=== PATIENT | female | born 1945 | race Caucasian/White ===

== ENCOUNTER 2024-08-03 00:47 | Day surgery (SDC) | payer MEDICARE, SELFPAY ==
[2024-07-24 13:06] VITALS: BMI 34.0
[2024-08-03 07:52] VITALS: BP 145/75; PULSE 75; RESP 18; TEMP 36.3; O2SAT 97; BMI 33.6
[2024-08-03] MEDS: LACTATED RINGERS 1,000 ML 150 ML IV CONT (08:20)
--- NOTE | 2024-08-03 08:20 | SUR.PREOP ---
Patient reports small stool balls still occurring this morning. Dr. Cortes notified and aware. Okay to proceed with procedure.
[2024-08-03 08:25] LABS: Glucose Point of Care 131 mg/dl (65-105)
--- NOTE | 2024-08-03 09:13 | P.PNAN_ITS ---
Anes - Initial Pre Proc Eval Procedure: Operation Date: 08/03/24 09:00 Proposed Procedures p Screening Colonoscopy - Dominick Cortes MD Date/Time: 08/03/24 09:13 Surgeon: Dominick Cortes MD Pre Op Diagnosis: Neoplasm Screening Patient Data Age: 79 Gender: F Height: 1.47 m Weight: 73 kg Last Vital Signs Temp 97.4 F L 08/03/24 07:52 Pulse 75 08/03/24 07:52 Resp 18 08/03/24 07:52 BP 145/75 H 08/03/24 07:52 Pulse Ox 97 08/03/24 07:52 O2 Del Method Room Air 08/03/24 07:52 Allergies Allergy/AdvReac Type Severity Reaction Status Date / Time No Known Drug Allergies Allergy Mild unknown Verified 08/03/24 07:51 Home Medications Medication Instructions Recorded Confirmed Type atorvastatin 80 mg tablet 80 mg PO DAILY 06/22/21 08/03/24 History cetirizine 10 mg tablet 10 mg PO DAILY 06/22/21 08/03/24 History ezetimibe 10 mg-atorvastatin 10 mg 1 tablet PO DAILY 06/22/21 08/03/24 History tablet furosemide 40 mg tablet 40 mg PO QAM 06/22/21 08/03/24 History krill 350 mg-omega-3 90 mg-dha 24 1 cap PO DAILY 06/22/21 08/03/24 History mg-epa 50 sz-hofopuf-ofsur capsule (MegaRed [place]-3 Krill Oil) mecobalamin (vitamin B12) 1,000 1,000 mcg PO DAILY 06/22/21 08/03/24 History mcg chewable tablet (B12 Active) magnesium 200 mg tablet 200 mg PO DAILY 04/29/22 08/03/24 History cholecalciferol (vitamin D3) 25 25 mcg PO DAILY 07/24/24 08/03/24 History mcg (1,000 unit) chewable tablet (Vitamin D3) metformin 500 mg tablet 500 mg PO DAILY 07/24/24 08/03/24 History sertraline 50 mg tablet 50 mg PO DAILY 07/24/24 08/03/24 History Laboratory Tests 08/03/24 08:13 POC Capillary Glucose 131 H mg/dl (65-105) Patient hx anesthesia problems: none Family hx anesthesia problems: none Results Review: All pre-operative results and documents have been reviewed as part of the pre- operative evaluation. [facility] Past Medical History Medical History Allergies Arthritis Bilateral knee pain Surgical History Surgical History History of cholecystectomy Family History Family History Mother Diabetes mellitus Other Family history of arthritis Social History Social History Smoking status: Never smoker Alcohol intake: never Substance use: current Other substance usage details: CBD Gummy for sleep Lack of Transportation: No Lack of Food: Never True Current Housing: I Have Housing Concerned About Future Housing: No Difficulty Paying Gas/Electric Bills: No Difficulty Paying for Meds: No Currently Unemployed: No Education: High School Diploma/GED Difficulty w/ Childcare or Family Care: No Living arrangements: with family Occupation/Education: retired Gender identity (if verbalized by the patient): Female Spiritual care concerns: No Anes - Eval Final PreProcedure Day of Procedure 08/03/24 09:13 Patient weight: obese Heart: regular rate and rhythm Lungs: clear to auscultation Airway: Mallampati scale class II Neurological: alert and oriented Last oral intake: >/= 8 hours ASA classification: III Emergent: no Anesthetic plan: proceed Anesthesia type and monitoring: general GIVS and standard monitoring Results Review: All pre-operative results and documents have been reviewed as part of the pre- operative evaluation. Hyperlipidmia, DM fsbs 131, SHANKAR but noncompliant w CPAP. Informed Consent: The patient's anesthetic plan and its attendant risks and benefits were discussed with the patient/family/POA. Questions were solicited and answers provided to the satisfaction of the patient/family/POA.
--- NOTE | 2024-08-03 09:29 | PM.IMHP ---
H&P: HPI History of Present Illness Date/Time: 08/03/24 09:29 Chief Complaint: Screening colonoscopy Narrative: This is the patient's second colonoscopy after more than 20 years. There are no GI symptoms and there is no family history of colorectal cancer. Review of Systems Review of Systems: All systems reviewed & are unremarkable except as noted in HPI and below PMFSH Past Medical History Medical History Allergies Arthritis Bilateral knee pain Surgical History Surgical History History of cholecystectomy Family History Family History Mother Diabetes mellitus Other Family history of arthritis Social History Social History Smoking status: Never smoker Alcohol intake: never Substance use: current Other substance usage details: CBD Gummy for sleep Lack of Transportation: No Lack of Food: Never True Current Housing: I Have Housing Concerned About Future Housing: No Difficulty Paying Gas/Electric Bills: No Difficulty Paying for Meds: No Currently Unemployed: No Education: High School Diploma/GED Difficulty w/ Childcare or Family Care: No Living arrangements: with family Occupation/Education: retired Gender identity (if verbalized by the patient): Female Spiritual care concerns: No Meds Home Medications and Allergies Home Medications Medication Instructions Recorded Confirmed Type atorvastatin 80 mg tablet 80 mg PO DAILY 06/22/21 08/03/24 History cetirizine 10 mg tablet 10 mg PO DAILY 06/22/21 08/03/24 History ezetimibe 10 mg-atorvastatin 10 mg 1 tablet PO DAILY 06/22/21 08/03/24 History tablet furosemide 40 mg tablet 40 mg PO QAM 06/22/21 08/03/24 History krill 350 mg-omega-3 90 mg-dha 24 1 cap PO DAILY 06/22/21 08/03/24 History mg-epa 50 ph-mqyzqua-kcsii capsule (MegaRed [place]-3 Krill Oil) mecobalamin (vitamin B12) 1,000 1,000 mcg PO DAILY 06/22/21 08/03/24 History mcg chewable tablet (B12 Active) magnesium 200 mg tablet 200 mg PO DAILY 04/29/22 08/03/24 History cholecalciferol (vitamin D3) 25 25 mcg PO DAILY 07/24/24 08/03/24 History mcg (1,000 unit) chewable tablet (Vitamin D3) metformin 500 mg tablet 500 mg PO DAILY 07/24/24 08/03/24 History sertraline 50 mg tablet 50 mg PO DAILY 07/24/24 08/03/24 History Allergies Allergy/AdvReac Type Severity Reaction Status Date / Time No Known Drug Allergies Allergy Mild unknown Verified 08/03/24 07:51 Vital Signs Vital Signs - 24 hr 08/03/24 07:52 Temperature 97.4 F L Pulse Rate 75 Respiratory Rate 18 Blood Pressure 145/75 H Pulse Oximetry 97 Oxygen Delivery Room Air Assessment and Plan Assessment and plan (1) Screening for malignant neoplasm of colon: Code(s): Z12.11 - Encounter for screening for malignant neoplasm of colon Status: Acute Assessment and Plan: The patient is deemed a good candidate for the procedure. Consent signed. Will proceed.
[2024-08-03 09:59] VITALS: BP 111/58; PULSE 58; RESP 20; O2SAT 98
[2024-08-03 10:09] VITALS: BP 118/66; PULSE 56; RESP 16; O2SAT 98
[2024-08-03 10:19] VITALS: BP 118/66; PULSE 57; RESP 22; O2SAT 98
== END 2024-08-03 10:39 | disposition home or self-care (01) ==
PROVIDERS: PCP Internal Medicine; Referring Provider Internal Medicine; Visit Provider Internal Medicine Gastroenterology
PROC: 0DJD8ZZ Inspection of Lower Intestinal Tract, Via Natural or Artificial Opening Endoscopic (ICD-10-PCS; CPT 45378; principal; 2024-08-03 09:00)
DX: Z12.11 Encounter for screening for malignant neoplasm of colon (principal); K57.30 Diverticulosis of large intestine without perforation or abscess without bleeding; F12.90 Cannabis use, unspecified, uncomplicated; E66.9 Obesity, unspecified; Z68.33 Body mass index [BMI] 33.0-33.9, adult; Z79.84 Long term (current) use of oral hypoglycemic drugs; Z98.890 Other specified postprocedural states; Z90.49 Acquired absence of other specified parts of digestive tract
CPT/HCPCS: G0121; 82948; J2003; J2704; J7120

== ENCOUNTER 2025-04-02 09:30 | Outpatient (CLI) | payer MEDICARE, SELFPAY ==
--- NOTE | ~2025-04-02 | MR_ITS ---
MRI of the cervical spine Clinical History: Myelopathy Technique: Axial T2-weighted and gradient images, and sagittal T1-weighted, T2-weighted, and STIR leda ges were acquired. Findings: There is no fracture or subluxation of the cervical spine. Vertebral bodies maintain normal height and alignment. No suspicious bone marrow signal abnormality seen. At C2-C3, there is no disc bulge or herniation. No spinal canal stenosis, cord compression, or neural foraminal narrowing. At C3-C4, there is no significant disc bulge or herniation. There is mild bilateral facet arthropathy , left worse than right. Possible minimal right neural foraminal narrowing. Left neural foramen proba lazaro preserved. No canal stenosis or cord compression. At C4-C5, there is advanced degenerative distended. There is disc and osteophyte complex with mild ca nal stenosis but no ra cord compression. There is bilateral neural foraminal narrowing. At C5-C6, there is advanced degenerative disc narrowing. There is disc osteophyte complex with modera te canal stenosis and minimal flattening the ventral cord. There is advanced bilateral neural foramin al narrowing, left worse than right. At C6-C7, there is advanced degenerative disc narrowing. There is minimal disc osteophyte complex. Th ere is mild canal stenosis without ra cord compression. There is left neural foraminal narrowing. Right neural foramen probably preserved. There is extensive mild amorphous hyperintense signal in the spinal cord on STIR images from the C4-C 6 levels, somewhat nonspecific. Paravertebral soft tissues are unremarkable. Impression: Moderate to advanced degenerative spondylosis throughout the cervical spine, as above. Mild amorphous STIR hyperintense signal in the spinal cord from C4 through C6, which could reflect no nspecific myelopathy or transverse myelitis. Reviewed, dictated and finalized at [facility]. Impression: Moderate to advanced degenerative spondylosis throughout the cervical spine, as above. Mild amorphous STIR hyperintense signal in the spinal cord from C4 through C6, which could reflect nonspecific myelopathy or transverse myelitis.
== END 2025-04-02 09:31 | disposition home or self-care (01) ==
LOC: GOSHIMG 09:31
PROVIDERS: PCP Internal Medicine; Visit Provider Internal Medicine
DX: G95.9 Disease of spinal cord, unspecified (principal); M47.892 Other spondylosis, cervical region
CPT/HCPCS: 72141

== ENCOUNTER 2025-04-25 11:04 | Outpatient (CLI) | payer MEDICARE, SELFPAY ==
--- NOTE | ~2025-04-25 | XR_ITS ---
Lumbosacral Spine: AP and lateral views Clinical History: Pain Findings: The normal lordotic curve is maintained. No fracture seen. 4-5 mm anterolisthesis of L4 ove r L5 present. There is advanced facet arthropathy at L4-L5 and L5-S1. The sacroiliac joints are pradip lly outlined. Impression: Advanced spondylosis of the lower lumbar spine with 4-5 mm anterolisthesis of L4 over L5. Reviewed, dictated and finalized at location . Impression: Advanced spondylosis of the lower lumbar spine with 4-5 mm anterolisthesis of L 4 over L5.
--- NOTE | ~2025-04-25 | XR_ITS ---
Thoracic spine: Clinical Indication: Back pain AP and lateral views were performed. No fracture is seen. There is normal alignment of the vertebrae. There is mild degenerative changes of the thoracic spine. There is mild DISH. Paravertebral soft tissues appear normal. Impression: Mild degenerative changes, as above. Reviewed, dictated and finalized at location . Impression: Mild degenerative changes, as above.
== END 2025-04-25 11:05 | disposition home or self-care (01) ==
LOC: GOSHIMG 11:05
PROVIDERS: PCP Internal Medicine; Visit Provider Internal Medicine
DX: M47.814 Spondylosis without myelopathy or radiculopathy, thoracic region (principal); M47.816 Spondylosis without myelopathy or radiculopathy, lumbar region; M43.16 Spondylolisthesis, lumbar region
CPT/HCPCS: 72070; 72100

== ENCOUNTER 2025-05-14 09:19 | Outpatient (CLI) | payer MEDICARE, SELFPAY ==
--- NOTE | ~2025-05-14 | MR_ITS ---
MRI of the lumbar spine Clinical History: Spondylolisthesis Technique: Axial T2-weighted images, and sagittal T1-weighted, T2-weighted, and and T2 fat-sat images were acquired. Findings: There is no fracture in the lumbar spine. There is minimal grade 1 anterolisthesis of L4 ov er L5. No bone marrow signal abnormality seen. At L1-L2, there is no disc bulge or herniation. No spinal canal stenosis or neural foraminal narrowin g. At L2-L3, there is no disc bulge or herniation. No spinal canal stenosis or neural foraminal narrowin g. At L3-L4, there is minimal disc bulge and mild facet arthropathy. No central canal stenosis. Probable minimal left neural foraminal narrowing. Right neural foramen preserved. At L4-L5, there is diffuse disc bulge with severe facet arthropathy. There is moderate to severe spin al canal stenosis/thecal sac compression. There is moderate left neural foraminal narrowing and minim al right neural foraminal narrowing. At L5-S1, there is disc bulge and severe facet arthropathy. No central canal stenosis. There is mild to moderate right neural foraminal narrowing. Paravertebral soft tissues are unremarkable. Impression: Moderate degenerative spondylosis, especially the lower lumbar spine, as detailed above. Reviewed, dictated and finalized at location . Impression: Moderate degenerative spondylosis, especially the lower lumbar spine, as detail ed above.
== END 2025-05-14 09:20 | disposition home or self-care (01) ==
LOC: GOSHIMG 09:20
PROVIDERS: PCP Internal Medicine; Visit Provider Internal Medicine
DX: M43.16 Spondylolisthesis, lumbar region (principal)
CPT/HCPCS: 72148

== ENCOUNTER 2025-06-03 10:58 | Outpatient (CLI) | payer MEDICARE, SELFPAY ==
--- NOTE | ~2025-06-03 | MR_ITS ---
EXAMINATION: MR thoracic spine wo con DATE: 06/03/2025 11:41 INDICATION: Intervertebral disc disorder TECHNIQUE: Magnetic resonance imaging (MRI) of the thoracic spine was performed without intravenous contrast. Sagittal localizer T1-weighted FSE of the cervicothoracic spine was obtained. Thoracic spine sequences included sagittal T2-weighted FSE, sagittal T1-weighted SE, Sagittal T2-weighted FS FSE, and axial T2-weighted FSE. COMPARISON: None FINDINGS: 12 degrees thoracic dextrocurvature. Sagittal alignment is normal. Vertebral body heights are normal. Normal marrow signal throughout.There is moderate disc height loss with degenerative endplate changes and disc bulges resulting in mild central canal stenosis at C5-C6 and C6-C7. Thoracic disc heights are relatively preserved. Small left paracentral disc protrusion with negligible central canal stenosis at T11-T12.. Disc bulges contributing to mild central canal stenosis at T12-L1 and L1-L2. The remaining thoracic discs do not extend beyond the endplate margins. There is multilevel mild to moderate thoracic facet osteoarthritis which contributes to mild neural foraminal stenosis on the right at T3-T4, T4-T5 and T9-T10 and on the left at T2-T3, T8-T9 and T9-T10. There is normal spinal cord signal with normal short central ventricular terminalis at the conus measuring 2 mm in maximal diameter. The conus terminates at L2. IMPRESSION: 1. 12 degrees thoracic dextroscoliosis with minimal to mild thoracic spondylosis. 2. Incompletely visualized moderate lower cervical and mild upper lumbar spondylosis. Reviewed, dictated and finalized at location A. IMPRESSION: 1. 12 degrees thoracic dextroscoliosis with minimal to mild thoracic spondylosi s. 2. Incompletely visualized moderate lower cervical and mild upper lumbar spondy losis.
== END 2025-06-03 10:59 | disposition home or self-care (01) ==
LOC: GOSHIMG 10:59
DX: M51.04 Intervertebral disc disorders with myelopathy, thoracic region (principal); M47.894 Other spondylosis, thoracic region; M47.892 Other spondylosis, cervical region; M47.896 Other spondylosis, lumbar region
CPT/HCPCS: 72146

== ENCOUNTER 2025-08-27 15:43 | Outpatient (CLI) | payer MEDICARE, SELFPAY ==
--- NOTE | ~2025-08-27 | MM_ITS ---
EXAMINATION: MM screening cinthya BI w brenda HISTORY: Screening TECHNIQUE: Craniocaudal and mediolateral oblique 3-D tomosynthesis images were obtained and synthetic 2-D images were generated. CAD analysis was submitted and interpreted. COMPARISON: No prior mammogram is available for comparison at this institution. BREAST PARENCHYMAL COMPOSITION: Not dense: There are scattered areas of fibroglandular density. FINDINGS: There are no suspicious masses, calcifications or architectural distortion in the right breast to suggest malignancy. There is a mass in the upper outer quadrant of the left breast, posterior third with slightly irregular margins. There are benign bilateral breast calcifications. IMPRESSION: 1. Left breast mass upper outer quadrant, posterior third. 2. Recommend comparison to previous outside mammograms. BI-RADS Category 0: Incomplete: Needs additional imaging evaluation. Reviewed, dictated and finalized at location O. 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
--- OUTSIDE RECORDS SUMMARY | 2025-08-28 03:11 | XMS_ITS | Clinical Summary ---
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 Role Phone Estevan Mccann MD Primary Care Provider Allergies Active Allergy Reactions Criticality Noted Date Comments Cefdinir Hives Medium 05/30/2025 Grape Other (See comments) 05/30/2025 Morphine Unknown 02/15/2017 Rosuvastatin Other (See comments) High 09/13/2017 Sulfa (Sulfonamide Antibiotics) Itching Medium 05/11 Medications atorvastatin (LIPITOR) 80 mg tablet atorvastatin 80 mg tablet 3 Active ezetimibe (ZETIA) 10 mg tablet Take 1 tablet (10 mg total) by mouth daily 2 Active furosemide (LASIX) 40 mg tablet 3 Active yrvgj-fp7-mvv-e bb-ea4-xte-astx (Krill Oil, [place] 3 and 6,) 1000-130(40-80) mg capsule Krill Oil ([place] 3 and 6) 1000-130(40-80) mg capsule 0 Active sertraline (ZOLOFT) 50 mg tablet 3 Active aspirin 81 mg enteric coated tablet Take 1 tablet (81 mg total) by mouth daily Active cetirizine (ZyrTEC) 10 mg tablet Take 1 tablet (10 mg total) by mouth daily Active albuterol HFA (PROVENTIL HFA,VENTOLIN HFA,PROAIR HFA) 90 mcg/actuation inhaler Inhale 2 puffs every 4 hours by inhalation route. Active OneTouch Verio test strips strip daily 5 Active cholecalciferol (VITAMIN D-3) 5,000 unit tablet Take 1 tablet every day by oral route. Active magnesium oxide (MAG-OX) 250 mg (150.8 mg elemental) tablet Take 1 tablet every day by oral route. 9 Active meclizine (ANTIVERT) 12.5 mg tablet Take by mouth Active metFORMIN (GLUCOPHAGE) 500 mg tablet Take 1 tablet (500 mg total) by mouth 2 (two) times a day 5 Active Active Problems Problem Noted Date Diagnosed Date Sensorineural hearing loss ( SNHL) of right ear with restricted hearing of left ear 01/10/2023 Sensorineural hearing loss (SNHL) of both ears 0 12/17/2022 Tinnitus of both ears 12/17/2022 Encounters Date Type Department Care Team Description 06/20/2025 11:24 AM CDT - 06/20/2025 11:59 PM CDT Hospital Encounter [facility] [address] [place] [address] [id number] Discharge Disposition: Discharge to home or self care 06/20/2025 10:15 AM CDT Office Visit [facility] [id number] [place] [address] [address] [place] [address] Juan Carlos Gant MD Cervical spondylosis with myelopathy [M47.12] (Primary Dx) 06/17/2025 Results [facility] [address] [facility] 4th [address] [place] [address] Geoff Pacheco MD Vitamin B12, Vitamin B1, Vitamin B6, Additional followed-up results: 3 05/30/2025 4:20 PM CDT Lab [facility] [address] [place] [address] Myelopathy; Memory loss 05/30/2025 2:15 PM CDT Office Visit [facility] [address] [place] [address] [address] [place] [address] Geoff Pacheco MD Myelopathy (Primary Dx); Memory loss from Last 3 Months Surgical History Surgery Date Site/Laterality Comments CHOLECYSTECTOMY Medical History Medical History Date Comments Allergic rhinitis Hyperlipidemia HL (hearing loss) Family History Medical History Relation Name Comments No Known Problems Father No Known Problems Mother Relation Name Status Comments Father Mother Social History Tobacco Use Types Packs/Day Years Used Date Smoking Tobacco: Never Smokeless Tobacco: Never Tobacco Cessation:Counseling Given: Not Answered Personal Safety Answer Date Recorded Have you ever been in or are you currently in a harmful physical or emotional relationship or is someone making you feel afraid or unsafe? 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 Gender Identity Not on file Sexual Orientation Not on file Last Filed Vital Signs Vital Sign Reading Time Taken Comments Blood Pressure 127/86 06/20/2025 10:14 AM CDT Pulse 74 06/20/2025 10:14 AM CDT Temperature 36.3 C (97.4 F) 06/20/2025 10:14 AM CDT Respiratory Rate 16 06/20/2025 10:14 AM CDT Oxygen Saturation 99% 06/20/2025 10:14 AM CDT Inhaled Oxygen Concentration - - Weight 72.2 kg (159 lb 1.6 oz) 06/20/2025 10:14 AM CDT Height 149.9 cm (4' 11) 01/10/2023 2:57 PM CDT Body Mass Index 32.13 01/10/2023 2:57 PM CDT Plan of Treatment Health Maintenance Due Date Last Done Comments Depression Screening 1945 Hepatitis C Screening 1945 DTaP/Tdap/Td Vaccine (1 - Tdap) 1958 Hepatitis B Screening 1965 Well Visit 65+ 2012 Zoster Vaccine (2 of 3) 09/13/2013 07/19/2013 Pneumococcal vaccine 65+ (2 of 2 - PPSV23, PCV20, or PCV21) 01/14/2015 11/19/2014 Covid-19 Vaccine (4 - 2024-2 6 season) 2025 09/05/2021, 12/30/2020, 11/19/2020 Influenza Vaccine (#1) 2025 , 08/03/2022, 08/15/2021, Additional history exists Osteoporosis Screening-Bone Density Scan 10/20/2025 10/20/2023 Fall Risk Assessment 05/30/2026 05/30/2025 Procedures Procedure Name Priority Date/Time Associated Diagnosis Comments NEURO MR OUTSIDE REFERENCE Routine 06/20/2025 11:24 AM CDT TSH Routine 05/30/2025 5:23 PM CDT Myelopathy Memory loss VITAMIN B12 Routine 05/30/2025 5:23 PM CDT Myelopathy Memory loss HIV 1/2 ANTIBODY PLUS P24 ANTIGEN Routine 05/30/2025 5:22 PM CDT Myelopathy Memory loss VITAMIN B6 Routine 05/30/2025 4:58 PM CDT Myelopathy Memory loss VITAMIN B1 Routine 05/30/2025 4:58 PM CDT Myelopathy Memory loss RPR Routine 05/30/2025 4:56 PM CDT Myelopathy Memory loss from Last 3 Months Results * Neuro MR Outside Reference (06/20/2025 11:24 AM CDT) Impressions [facility] - 06/20/2025 11:24 AM CDT These images are for Reference purposes only and have not been reviewed by [facility]. There will be no report generated by a [facility]ologist. Narrative [facility] - 06/20/2025 11:24 AM CDT EXAMINATION: Images For Reference Purposes Only us Juan Carlos Gant MD IMG MRI PROCEDURES Final Resu lt [facility] * TSH (05/30/2025 5:23 PM CDT) Thyroid Stimulating Hormone 2.96 0.30 - 4.20 mcIUnit/mL Blood 05/30/2025 5:23 PM CDT 05/30/2025 5:23 PM CDT Geoff Pacheco MD LAB BLOOD ORDERABLES F inal Result Performing Organization Address [facility] Co de Phone Number ÁNGELA JENSEN [address] [address] [facility] [place] [address] * Vitamin B12 (05/30/2025 5:23 PM CDT) [facility] Vitamin B12 381 230 - 1,250 pg/mL Blood 05/30/2025 5:23 PM CDT 05/30/2025 5:23 PM CDT Geoff Pacheco MD LAB BLOOD ORDERABLES F inal Result Performing Organization Address [facility] de Phone Number ÁNGELA JENSEN [phone] [address] Department [place] [address] * HIV 1/2 Antibody plus p24 Antigen Blood (05/30/2025 5:22 PM CDT) [facility] HIV 1/2 ab + p24 ag Nonreactive Nonreactive Comment: Nonreactive for HIV-1 antigen and HIV-1/HIV-2 antibodies. No laboratory evidence of HIV infection. If acute HIV infection is suspected, consider testing for HIV-1 RNA. Blood 05/30/2025 5:22 PM CDT 05/30/2025 5:22 PM CDT Geoff Pacheco MD LAB MICROBIOLOGY - GEN ERAL ORDERABLES Final Result Performing Organization Address [facility] Co de Phone Number ÁNGELA [phone] [address] [place] [address] * Vitamin B1 (05/30/2025 4:58 PM CDT) [facility] Thiamine (Vit B1) 143 70 - 180 nmol/L [facility] Lab Comment: ADDITIONAL INFORMATION This test was developed and its performance characteristics determined by [facility] in a manner consistent with CLIA requirements. This test has not been cleared or approved by the U.S. Food and Drug Administration. Test Performed by: [facility] [place] [address] Rap Artist: Rome Perry Ph.D.; CLIA# [id number] Blood 05/30/2025 4:58 PM CDT 05/30/2025 5:20 PM CDT Geoff Pacheco MD LAB BLOOD ORDERABLES F inal Result Performing Organization Address [facility] Co de Phone Number ÁNGELA CAMILA [phone] [address] [place] [address] [facility] * Vitamin B6 (05/30/2025 4:58 PM CDT) [facility] Pyridoxal phosphate (Vit B6) 7 5 - 50 mcg/L [facility] Comment: ADDITIONAL INFORMATION This test was developed and its performance characteristics determined by [facility] in a manner consistent with CLIA requirements. This test has not been cleared or approved by the U.S. Food and Drug Administration. Test Performed by: [facility] [address] Rap Artist: Rome Perry Ph.D.; CLIA# [id number] Blood 05/30/2025 4:58 PM CDT 05/30/2025 5:20 PM CDT Geoff Pacheco MD LAB BLOOD ORDERABLES F inal Result Performing Organization Address [facility]/ZIP Co de Phone Number ÁNGELA [phone] [address] [place] [address] [facility] * RPR Blood (05/30/2025 4:56 PM CDT) RPR Nonreactive Nonreactive Blood 05/30/2025 4:56 PM CDT 05/30/2025 5:19 PM CDT Geoff Pacheco MD LAB MICROBIOLOGY - GEN ERAL ORDERABLES Final Result Performing Organization Address City/State/ZIP Co hi Phone Number ÁNGELA [phone] [employer] [facility] [employer] [facility] [place] [address] from Last 3 Months Insurance MEDICARE MEDICARE [employer] S[employer]IOR [employer] Care Teams Seedling Puller Relationship Specialty Start Date End Date Estevan Mccann MD PCP - General Internal Medicine 12/13/22
== END 2025-08-27 15:44 | disposition home or self-care (01) ==
LOC: ANHFOHIMG 15:44
PROVIDERS: Visit Provider Internal Medicine
DX: Z12.31 Encounter for screening mammogram for malignant neoplasm of breast (principal)
CPT/HCPCS: 77063; 77067